=== PATIENT | male | born 1955 | race Caucasian/White ===

== ENCOUNTER 2018-04-30 04:53 | Inpatient (IN) | payer OTHER ==
--- NOTE | 2018-04-30 06:32 | PDOC.FPRHP ---
- History of Present Illness Chief Complaint: dizziness and left-sided numbness and weakness History of Present Illness: Patient is a 62 YO gentleman with a PMH significant for HTN and HLD who was transferred from an outside facility after presenting there with a CC of sudden onset dizziness w/ associated left-sided numbness and weakness & difficulty speaking that began around 17:30 yesterday evening. He stated that he was sitting on his bed in his cell and suddenly felt lightheaded and nauseous as if the room was spinning. He then began to feel numbness that started in his head and radiated all the way down into his foot all on his left side. The patient states that he tried to stand up and when he tried to grab the bed rail he realized he also had no strength in his left arm or leg. He then tried to call out to his cellmate but felt as if his whole tongue was numb and had difficulty speaking. The patient reported that his symptoms lasted for ~ 30 minutes before they resolved. The patient endorses associated nausea and vertigo but denies any chest pain, vomiting, headache or blurry/spotty vision. Of note, the patient reported having episodes of transient dizziness, numbness, and weakness almost daily since this October. He stated that before being incarcerated he saw his PCP, Dr. Pimentel, shortly after these episodes began and had imaging done which revealed some abnormality that the patient cannot recall. He said he was told to follow-up with an ENT physician but was unable to before he had to report to group home for a DUI charge. He has therefore continued to be symptomatic for the duration of his incarceration. He reported that this most recent episode was the worst one he has had so far. He was sent to [facility]'s ED from group home where he got a head and neck CTA which revealed that he had significant bilateral carotid artery stenosis. - Allergies/Adverse Reactions Allergies Allergy/AdvReac Type Severity Reaction Status Date / Time No Known Drug Allergies Allergy Verified 04/30/18 08:19 - History PMHx: HTN, HLD, skin cancer PSHx: L fem-pop bypass & skin cancer removal from nose as well as Warthin's tumor removal FHx: Mom- [place] grandmother - DMII & CVA Social: Former smoker. Smoked 1.5-2 ppd for ~40 years. Quit 1 year ago. Drinks 1 6-pack per day. No drug use. - Review of Systems General: denies: fever/chills, weight/appetite/sleep changes Eyes: denies: eye pain, vision changes ENT: reports: other (no sore throat). denies: nasal congestion Respiratory: denies: cough, congestion, shortness of breath Cardiovascular: denies: chest pain, edema Gastrointestinal: reports: nausea. denies: vomiting, diarrhea, constipation, abdominal pain Genitourinary: reports: other (no hematuria). denies: dysuria Skin: reports: itching. denies: rashes Musculoskeletal: denies: swelling, arthritis/arthralgias Neurological: reports: numbness, weakness. denies: syncope Psychological: denies: anxiety, depression - Vital signs BP: 176/70 HR: 65 RR: 18 Tmax: 97.8F Pox: 97% on RA Wt: 74.8kg - Physical Exam Constitutional: NAD, awake, alert and oriented, well developed HEENT: normocephalic and atraumatic, PERRLA, EOMI, grossly normal vision, grossly normal hearing, MMM, oropharynx clear Neck: supple, FROM, other (B/L carotid bruits) Heart: RRR, normal S1/S2, pulses present, no edema Lungs: CTAB, no respiratory distress, good air movement, no rales/rhonchi, no wheezing Abdomen: non-tender, bowel sounds present Musculoskeletal: normal structure, ROM grossly normal Neurological: no focal deficit, CN II-XII intact, normal sensation, other (No cerebellar signs. Proprioception intact.) Skin: no rash/lesions, good turgor Heme/Lymphatic: no unusual bruising or bleeding Psychiatric: normal mood and affect, good judgment and insight, intact recent and remote memory FMR H&P: Results - Labs Result Diagrams: 04/30/18 08:21 04/30/18 08:21 - Radiology Interpretation Other Status: report reviewed by me (outside ED head and neck CTA significant for B/L carotid and basialr artery stenosis R>L) FMR H&P: A/P - Problem List (1) Pre-syncope Current Visit: Yes Status: Acute (2) Carotid arterial disease Current Visit: Yes Status: Chronic Code(s): I77.9 - DISORDER OF ARTERIES AND ARTERIOLES, UNSPECIFIED Qualifiers: Carotid artery disease type: stenosis Laterality: bilateral Qualified Code(s): I65.23 - Occlusion and stenosis of bilateral carotid arteries (3) HTN (hypertension) Current Visit: Yes Status: Chronic Code(s): I10 - ESSENTIAL (PRIMARY) HYPERTENSION (4) HLD (hyperlipidemia) Current Visit: Yes Status: Chronic Code(s): E78.5 - HYPERLIPIDEMIA, UNSPECIFIED (5) Former cigarette smoker Current Visit: Yes Status: Chronic Code(s): Z87.891 - PERSONAL HISTORY OF NICOTINE DEPENDENCE (6) PVD (peripheral vascular disease) Current Visit: Yes Status: Acute Code(s): I73.9 - PERIPHERAL VASCULAR DISEASE, UNSPECIFIED - Plan 62 YOM male w/ a PMH significant for HTN and HLD as well as former heavy tobacco use who presented to an outswide ED after an episode of lightheadedness w/ left-sided weakness & numbness and dysarthria that resolved within 30 minutes who was found to have significant bilateral carotid and basilar artery stenosis on CT. Symptomatic bilateral carotid & basilar artery stenosis: - Seen on CT at outside ED. Symptoms had completely resolved prior to arriving to [facility] ED. - Will keep NPO and consider consulting CV surgery for likely surgical intervention. - Orthostats negative in the ED. - Will order an ECG to have on record in our ED but strip from outside ED was NSR. - Outside labs were WNLs but will check a CBC, BMP, TSH, Mg, Phos, and FLP. - Will resume home ASA and statin. HTN: - Aware, will order PRN meds while NPO but will resume home meds once taking PO. HLD: - Will resume home statin. h/o PVD: - Aware, s/p L fem/pop. - Will resume home ASA and statin. h/o former tobacco use: - Aware, quit ~1 year ago per patient. FMR H&P: Upper Level - Pertinent history 62 yo CM with PMHx HTN, HLD and PVD presents with cc of acute onset L sided weakness and dysarthria. He reports at 530pm yesterday he was sitting down to write a letter to his and suddenly felt weak and couldn't speak. He tried signalling to his roommate because he couldn't speak. At that point, he was taken to outside ER where CT and CTA were performed showing severe carotid stenosis. He reports these symptoms started 6 months ago back in October prior to being incarcerated. He first noticed weakness while outside gardening and thought it was related to the heat. Since then, he has had innumerable episodes of weakness, dizziness, usually worse on the L side. Yesterday was the most severe. At this time, his symptoms have completely resolved. - Pertinent findings VSS, slightly hypertensive Gen: awake, alert, oriented, appropriately interactive HEENT: atraumatic, normocephalic CV: RRR, no murmurs, significant carotid bruits noted BL, periperal pulses 1+ in BL radial and dorsalis pedis RESP: CTAB ABD: soft, nontender, nondistended EXT: no edema or cyanosis, slight clubbing of BL fingernails Neuro: CN intact, no focal strength or sensation deficits, negative [id number] , proprioception intact - Plan Date/Time: 04/30/18 0632 63 yo M with TIA and severe symptomatic carotid stenosis 1. Carotid stenosis - Hi grade BL per CTA at outside facility, will request images be uploaded, CD with patient - Will consult CV surgery this morning - NPO until surgery eval - Labs including FLP, TSH, Mg, Phos ordered - EKG ordered 2. HTN - Home medications 3. HLD - Home medications 4. H/o PVD - Fem pop on L 5. H/o tobacco and alcohol abuse - None for > 4 months PPX: Lovenox I, Trish Jacques MD, PGY-3, have evaluated this patient and agree with findings/ plan as outlined by real estate internship resident. Pertinent changes/additions are listed here. Attending Addendum - Attending Addendum Date/Time: 04/30/18 0830 I personally evaluated the patient and discussed the management with Dr. Gant/ Sawyer. I agree with the History, Examination, Assessment and Plan documented above with any addition or exceptions noted below.
[2018-04-30] MEDS ORDERED: hydrALAZINE 20 MG/ML VIAL SLOW IVP PRN (08:05)
[2018-04-30] MEDS ORDERED: Ondansetron ODT 4 MG TAB PO PRN (08:05)
[2018-04-30] MEDS ORDERED: Acetaminophen 325 MG TAB PO PRN (08:05)
[2018-04-30 08:24] VITALS: BMI 26.5
[2018-04-30 08:37] LABS: #Basophils 0.1 thou/uL (0.0-0.2); #Eosinphils 0.3 thou/uL (0.0-0.7); #Lymphocytes 2.2 thou/uL (1.20-3.40); #Monocytes 0.6 thou/uL (0.11-0.59); #Neutrophils 4.5 thou/uL (1.40-6.50); %Basophils 0.8 % (0.0-1.0); %Eosinophils 4.3 % (0.0-10.0); %Lymphocytes 28.4 % (21.0-51.0); %Monocytes 8.2 % (0.0-10.0); %Neutrophils 58.3 % (42.0-75.0); Hemoglobin 14.4 g/dL (14.0-18.0); Mean Corpuscular Hemoglobin 32.3 pg (27.0-31.0); Mean Corpuscular Volume 97.7 fL (78.0-98.0); Mean Platelet Volume 7.9 fL (7.4-10.4); Platelet Count 291 thou/uL (130-400); Red Blood Cell (RBC) Count 4.46 mill/uL (4.70-6.10); White Blood Cell (WBC) Count 7.7 thou/uL (4.8-10.8)
[2018-04-30 08:52] LABS: Anion Gap 15 mmol/L (10-20); BUN (Urea Nitrogen) 9 mg/dL (8.4-25.7); Calc. Creatinine Clearance 100 mL/min (70-130); Calcium 9.4 mg/dL (7.8-10.44); Carbon Dioxide 23 mmol/L (23-31); Chloride 106 mmol/L (98-107); Estimated GFR-MDRD Greater than 90; Glucose 103 mg/dL (80-115); Magnesium 2.1 mg/dL (1.6-2.6); Phosphorus 3.3 mg/dL (2.3-4.7); Potassium 3.5 mmol/L (3.5-5.1); Sodium 140 mmol/L (136-145)
[2018-04-30] MEDS ORDERED: Enoxaparin Sodium 40 MG/0.4 ML SYRINGE SC SCH (10:45)
--- NOTE | 2018-04-30 11:38 | ULT ---
BILATERAL CAROTID DUPLEX ULTRASOUND: HISTORY: Carotid stenosis, atherosclerotic vascular disease. TECHNIQUE: Salgado scale ultrasound with color flow and spectral Doppler imaging of the external carotid artery sys tems is performed bilaterally. FINDINGS: There is plaque formation on either side. The peak systolic velocity in the right ICA measures 497 cm/s with an end-diastolic velocity of 21 cm /s and a systolic ratio of 6.66. The peak systolic velocity in the left ICA measures 55 cm/s with an end-diastolic velocity of 20 cm/s and a systolic ratio of 0.45. Flow in both vertebral arteries remains antegrade. IMPRESSION: Severe (greater than 70%) stenosis involving the right internal carotid artery. POS: FREDDIE
--- NOTE | 2018-04-30 19:31 | CON ---
DATE OF CONSULTATION: 04/30/2018 REQUESTING PHYSICIAN: Darcy Walsh DO ADMITTING PHYSICIAN: Martha Gant MD CHIEF COMPLAINT: Left arm and leg numbness and weakness. HISTORY OF PRESENT ILLNESS: The patient is a 62-year-old man with hypertension. Since about October, he has been having problems with dizziness and he describes having had a head CT done at the outpatient [facility] in [place]. Shortly after that, he was contacted by the ENT department at the [facility] about wanting to examine him further apparently including getting a CT scan with IV co ntrast, but immediately following that, he was due to report for sentencing and incarceration for mallory e of events and is currently in a minimum security facility nearby. He describes multiple manipulati ons of his antihypertensives during this time with resultant poor control of his blood pressure, no p articular improvement in his dizziness which happens on a daily basis. Last night, he had an episode of profound left arm and leg weakness and numbness and he felt odd. In questioning him, he lumps hi s odd feelings and dizziness in with this episode last night, making it somewhat difficult to tease o ut whether he has had previous such focal symptoms. PAST MEDICAL HISTORY: Significant for peripheral vascular disease having undergone some previous low er extremity revascularization procedure on the left leg. 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 HOME MEDICATIONS: Lopressor 50 mg b.i.d., lisinopril 10 mg a day, Lipitor 10 mg a day, baby aspirin a day and Motrin 600 mg b.i.d. SOCIAL HISTORY: He smoked about 1-1/2 to 2 packs of cigarettes a day for many years, but quit about a year ago. He used to drink about a 6 pack per day, but drinks none now. ALLERGIES: He denies any medical allergies. FAMILY HISTORY: Significant for his mother dying of a heart attack at about age 60. REVIEW OF SYSTEMS: As above. He says that his left foot gets quite numb when he tries to walk more than about 50 feet. PHYSICAL EXAMINATION: GENERAL: He is in no distress. VITAL SIGNS: Heart rate 67, blood pressure 177/82, temperature is 96.3. Room air O2 sats are 95%. HEENT: He has no xanthelasma. NECK: No JVD. He has bilateral carotid bruits. LUNGS: Clear to auscultation. CARDIOVASCULAR: He has a regular rate and rhythm. ABDOMEN: Soft and nontender. EXTREMITIES: He has easily palpable radial, femoral, and right dorsalis pedis pulses. I am not able to palpate pedal pulses on the left side. He does have capillary refill on his left foot that is ab out 1 second or perhaps a little less. He has no clubbing, cyanosis or edema. NEUROLOGIC: Cranial nerves II-XII are grossly intact as his upper and lower extremity strength. LABORATORY DATA: Shows a white count of 7.7, hemoglobin 14.4, hematocrit 43.6, platelets 291,000. S odium is 140, potassium 3.5, chloride 106, CO2 is 23, BUN 9, creatinine 0.79. TSH is 3.0126. His ca rotid ultrasound showed right-sided internal carotid velocities of 60, 498 and 146 and common carotid velocities of 58, 75 and 60 with a ratio of 6.66. There is mild plaque at the carotid bulb and in t he localized area of at least architectural narrowing in the internal carotid artery associated with turbulence and just beyond that, marked spectral broadening where the internal carotid velocity is me asured at 497 cm per second. On the left side, he also has a bit of plaque at the bulb and some mild spectral broadening, left-sided internal carotid velocities; however, were measured at 55, 46 and 27 . Common carotid velocities of 98, 120 and 43 for a ratio of 0.45. IMPRESSIONS AND RECOMMENDATIONS: Symptomatic high grade right carotid stenosis. We will plan on rig ht carotid endarterectomy.
[2018-04-30] MEDS ORDERED: Atorvastatin Calcium 40 MG TAB PO SCH (21:00)
[2018-04-30] MEDS ORDERED: Enoxaparin Sodium 80 MG/0.8 ML SYRINGE SC SCH (21:00)
[2018-04-30] MEDS: Metoprolol Tartrate 50 MG TAB PO SCH (21:13)
[2018-05-01 04:21] VITALS: BP 120/58
--- NOTE | 2018-05-01 05:29 | PDOC.FM ---
- Subjective Subjective: Mr. Hernandez has no complaints, resting well in bed. Awaiting surgery today. - Objective MAR Reviewed: Yes Vital Signs & Weight: Vital Signs (12 hours) Temp Pulse Resp BP Pulse Ox 05/01/18 04:15 98.7 F 63 169 H 120/58 L 93 L 05/01/18 00:00 98.9 F 65 16 116/56 L 95 04/30/18 20:38 99.2 F 82 18 130/60 94 L 04/30/18 20:30 94 L Weight Weight 74.531 kg I&O: 04/29/18 04/30/18 05/01/18 06:59 06:59 06:59 Intake Total 480 Balance 480 Result Diagrams: 04/30/18 08:21 04/30/18 08:21 <Polina Byrnes - Last Filed: 05/01/18 07:12> - Objective Vital Signs & Weight: Vital Signs (12 hours) Temp Pulse Resp BP Pulse Ox 05/01/18 04:15 98.7 F 63 169 H 120/58 L 93 L 05/01/18 00:00 98.9 F 65 16 116/56 L 95 Weight Weight 74.531 kg I&O: 04/30/18 05/01/18 05/02/18 06:59 06:59 06:59 Intake Total 480 Balance 480 Result Diagrams: 04/30/18 08:21 04/30/18 08:21 <José Pablo - Last Filed: 05/01/18 09:54> Phys Exam - Physical Examination Constitutional: NAD HEENT: moist MMs significant R carotid bruit Respiratory: no wheezing, no rhonchi, clear to auscultation bilateral Cardiovascular: RRR, no significant murmur Gastrointestinal: soft, non-tender, positive bowel sounds Musculoskeletal: no edema, pulses present Neurological: non-focal, moves all 4 limbs Psychiatric: normal affect Skin: normal turgor, cap refill <2 seconds <Polina Byrnes - Last Filed: 05/01/18 07:12> Dx/Plan (1) Carotid arterial disease Code(s): I77.9 - DISORDER OF ARTERIES AND ARTERIOLES, UNSPECIFIED Status: Chronic Qualifiers: Carotid artery disease type: stenosis Laterality: bilateral Qualified Code(s): I65.23 - Occlusion and stenosis of bilateral carotid arteries (2) PVD (peripheral vascular disease) Code(s): I73.9 - PERIPHERAL VASCULAR DISEASE, UNSPECIFIED Status: Acute (3) HLD (hyperlipidemia) Code(s): E78.5 - HYPERLIPIDEMIA, UNSPECIFIED Status: Chronic (4) HTN (hypertension) Code(s): I10 - ESSENTIAL (PRIMARY) HYPERTENSION Status: Chronic (5) Former cigarette smoker Code(s): Z87.891 - PERSONAL HISTORY OF NICOTINE DEPENDENCE Status: Chronic - Plan Plan: 62 yo M with PMH of HTN and HLD as well as former heavy tobacco use who presented to an outside ED after an episode of lightheadedness w/ left-sided weakness & numbness and dysarthria that resolved within 30 minutes who was found to have significant bilateral carotid and basilar artery stenosis on CT. Symptomatic bilateral carotid & basilar artery stenosis: - Seen on CT at outside ED. Symptoms had completely resolved prior to arriving to [facility] ED. - carotid doppler shows severe (>70%) stenosis of R ICA. Bilateral plaque formation and antegrade flow. - R carotid endarterectomy today per CV surg. Appreciate recommendations. - FLP pending - Continue home ASA and statin. HTN: - PRN meds while NPO but will resume home meds once taking PO HLD: - Continue home statin h/o PVD: - s/p L fem/pop h/o former tobacco use: - quit ~1 year ago per patient. Dispo: surgery today <Polina Byrnes - Last Filed: 05/01/18 07:12> (1) Pre-syncope Status: Acute (2) Carotid arterial disease Code(s): I77.9 - DISORDER OF ARTERIES AND ARTERIOLES, UNSPECIFIED Status: Chronic Qualifiers: Carotid artery disease type: stenosis Laterality: bilateral Qualified Code(s): I65.23 - Occlusion and stenosis of bilateral carotid arteries (3) HTN (hypertension) Code(s): I10 - ESSENTIAL (PRIMARY) HYPERTENSION Status: Chronic (4) HLD (hyperlipidemia) Code(s): E78.5 - HYPERLIPIDEMIA, UNSPECIFIED Status: Chronic (5) Former cigarette smoker Code(s): Z87.891 - PERSONAL HISTORY OF NICOTINE DEPENDENCE Status: Chronic (6) PVD (peripheral vascular disease) Code(s): I73.9 - PERIPHERAL VASCULAR DISEASE, UNSPECIFIED Status: Acute <José Pablo R - Last Filed: 05/01/18 09:54> Attending Addendum - Attending Addendum Date/Time: 05/01/1853 I personally evaluated the patient and discussed the management with Dr. Byrnes. I agree with the History, Examination, Assessment and Plan documented above with any addition or exceptions noted below. Patient feeling well. Going for CEA this morning due to symptomatic carotid stenosis. Continue current meds and statin and await further recs from CV surg. <José Pablo R - Last Filed: 05/01/18 09:54>
[2018-05-01 07:07] LABS: Cardiac Risk 3.1 (Less than 4.5)
[2018-05-01] MEDS ORDERED: Fentanyl 250 MCG/5 ML VIAL ONE (07:07)
[2018-05-01] MEDS ORDERED: Heparin 5,000 UNITS/ML VIAL ONE (07:36)
[2018-05-01] MEDS ORDERED: Protamine Sulfate 50 MG/5 ML VIAL ONE (07:36)
[2018-05-01] MEDS ORDERED: Midazolam HCl 2 mg/2 ml Vial ONE (07:55)
[2018-05-01] MEDS ORDERED: Ondansetron ODT 4 MG TAB ONE (07:55)
[2018-05-01] MEDS ORDERED: Enoxaparin Sodium 40 MG/0.4 ML SYRINGE SC SCH (09:00)
[2018-05-01] MEDS ORDERED: Atorvastatin Calcium 10 MG TAB PO SCH (09:00)
[2018-05-01] MEDS ORDERED: Aspirin 81 mg Enteric Coated Tablet PO SCH (09:00)
[2018-05-01] MEDS ORDERED: Fentanyl 100 MCG/2 ML VIAL ONE ×2 (11:06→12:34)
[2018-05-01] MEDS ORDERED: Lidocaine 1% PF 5 ML VIAL ONE (11:58)
[2018-05-01] MEDS ORDERED: Heparin 10,000 UNITS/ 10 ML VIAL ONE (11:58)
[2018-05-01] MEDS ORDERED: Vecuronium 10 MG VIAL ONE (11:58)
[2018-05-01] MEDS ORDERED: Glycopyrrolate 0.2 MG/ML 5 ML SYRINGE ONE (11:58)
[2018-05-01] MEDS ORDERED: PROPOFOL 200 MG/20 ML VIAL ONE (11:58)
[2018-05-01] MEDS ORDERED: Ondansetron PF 4 MG/2 ML Vial ONE (11:58)
[2018-05-01] MEDS ORDERED: Promethazine HCl 25 MG/ML VIAL IM PRN (12:18)
[2018-05-01] MEDS ORDERED: Promethazine HCl 25 MG/ML VIAL SLOW IVP PRN (12:18)
[2018-05-01] MEDS ORDERED: Ondansetron HCl/PF 4 MG/2 ML Vial IVP PRN (12:18)
--- NOTE | 2018-05-01 13:55 | OP ---
DATE OF PROCEDURE: 05/01/2018 PROCEDURE PERFORMED: Right carotid endarterectomy with bovine pericardium patch angioplasty. PREOPERATIVE DIAGNOSIS: Symptomatic right carotid stenosis. POSTOPERATIVE DIAGNOSIS: Symptomatic right carotid stenosis. SURGEON: Eloy Rockwell MD. ANESTHESIA: General endotracheal anesthesia. INDICATIONS: The patient is a 62-year-old man with known vascular disease who had a transient episod e of profound left arm and leg weakness and numbness. There was some dysphoria associated with this episode and the patient has been having several months of almost daily episodes of dizziness and he h as somewhat difficult time distinguishing between the constellation of symptoms to make it clear exac tly how many episodes of focal symptoms he has experienced. Ultrasonography showed a very high grade right carotid stenosis. He is now taken to the operating room for right carotid endarterectomy. Fi ndings rather small distal internal carotid artery with brisk back bleeding. A large amount of soft plaque in the proximal ICA causing a very high grade stenosis. NARRATIVE REPORT: After informed consent was obtained, the patient was taken to the operating room a nd placed in supine position on the operating table. After the induction of general anesthesia, the patient's neck was extended and rotated towards the left. His right neck was then prepped and draped in sterile fashion. An oblique incision was made in a skin crease on the right neck using a scalpel and electrocautery. The dissection was carried through the subcutaneous tissue and platysma and the n anteromedial sternocleidomastoid muscle and internal jugular vein. The external jugular was ligate d and divided in the course of this part of exposure. Upon continuing the dissection medial to the j ugular, the facial vein and other tributaries to the jugular system crossing the operative field were ligated and divided. The common carotid artery is dissected free from the sheath and the vagus nerv e and looped with a vessel loop. The tissues were fairly densely adherent to the distal common carot id artery through the mid internal carotid. The external carotid system was looped and that was with a vessel loop and the internal carotid artery was isolated. The anterior cervix Linsey was divided a s were the sling vessels to allow for adequate exposure of the internal carotid artery beyond the lev el of the hypoglossal nerve and digastric muscle. After adequate circulation time of heparin, the in ternal carotid, common carotid, and external carotid systems were sequentially occluded. A longitudi nal arteriotomy was made in the distal common carotid artery and was extended proximally and distally with Frederick scissors. An endarterectomy plane was developed at the bulb. It was transected at the c ommon carotid level everted from the external carotid system and then broken off distally in the inte rnal carotid. The endarterectomy bed was forcefully irrigated paying particular attention at the dis eh transfeather and proximal transection points. The distal feather was tailored and then an intral uminal carotid shunt was inserted first distally in the internal carotid and then proximally in the c ommon carotid aspirating on the side port of the shunt before allowing antegrade flow through it into the internal carotid system. The endarterectomy bed was again serially irrigated, inspected and lorie rided until no more mobile debris remained because of the small size of the internal carotid artery i n the somewhat jagged arteriotomy distally at the transition point between the externally dilated dis eased, internal carotid and the small normal distal internal carotid. It was elected to repair the a rteriotomy with a patch to avoid iatrogenic narrowing of the already small vessel. Bovine pericardia l patch was brought to the field and rinsed and then it was used as an onlay patch to repair the anahy riotomy with about a 0.5 cm of suture line at the distal common carotid level left to sew. The shunt was clamped and removed and vascular control reestablished on the origin of the internal carotid and on the common carotid with vessel loops. The remaining suture line was completed, the vessels of fo rward and backbled will allow for flushing of any air or residual debris at the arteriotomy or into t he external carotid system. Antegrade flow was allowed first into the external carotid and then to t he internal carotid. The wound was inspected for hemostasis. Gross hemostasis was adequate, but jenny n after packing the wound off, there were still some oozing from the dissection bed and the distal perez ture line and was opted to partially reverse the heparin with protamine. When hemostasis was adequat e, the wound was irrigated and reinspected and then closed. The platysma was reapproximated with run tena 3-0 Vicryl and the skin was closed with a running 5-0 Vicryl, subcuticular suture and Steri-Stri ps. The wound was dressed. The patient was awakened and extubated in the operating room and taken t o the recovery area, moving all extremities in good condition.
[2018-05-01] MEDS ORDERED: hydrALAZINE 20 MG/ML VIAL SLOW IVP PRN (14:15)
[2018-05-01] MEDS ORDERED: Acetaminophen 325 MG TAB PO PRN (14:15)
[2018-05-01] MEDS ORDERED: HYDROcodone/Acetaminophen 5/325 mg Tablet PO PRN (14:15)
[2018-05-01] MEDS ORDERED: Fentanyl 100 MCG/2 ML VIAL SLOW IVP PRN ×2 (14:15)
[2018-05-01] MEDS: Lisinopril 10 MG TAB PO SCH (15:01)
[2018-05-01] MEDS: Atorvastatin Calcium 10 MG TAB PO SCH (15:01)
[2018-05-01] MEDS: Metoprolol Tartrate 50 MG TAB PO SCH ×2 (15:01→20:07)
[2018-05-01] MEDS: HYDROcodone/Acetaminophen 5/325 mg Tablet PO PRN (15:05)
[2018-05-01] MEDS: Ondansetron PF 4 MG/2 ML Vial IVP PRN (15:05)
[2018-05-01] MEDS: Sodium Chloride 0.9% 1,000 ML IV SCH ×2 (15:15→23:37)
[2018-05-02] MEDS: HYDROcodone/Acetaminophen 5/325 mg Tablet PO PRN ×2 (00:05→05:51)
[2018-05-02 04:28] LABS: #Eosinphils 0.3 thou/uL (0.0-0.7); #Lymphocytes 2.1 thou/uL (1.20-3.40); #Monocytes 0.9 thou/uL (0.11-0.59); #Neutrophils 5.2 thou/uL (1.40-6.50); %Basophils 0.6 % (0.0-1.0); %Eosinophils 3.5 % (0.0-10.0); %Lymphocytes 24.5 % (21.0-51.0); %Monocytes 10.2 % (0.0-10.0); %Neutrophils 61.2 % (42.0-75.0); Hemoglobin 13.8 g/dL (14.0-18.0); Mean Corpuscular HGB CONC 32.5 g/dL (32.0-36.0); Mean Corpuscular Hemoglobin 32.8 pg (27.0-31.0); Mean Platelet Volume 8.4 fL (7.4-10.4); Platelet Count 226 thou/uL (130-400); Red Blood Cell (RBC) Count 4.22 mill/uL (4.70-6.10); White Blood Cell (WBC) Count 8.6 thou/uL (4.8-10.8)
[2018-05-02 04:45] LABS: Anion Gap 12 mmol/L (10-20); BUN (Urea Nitrogen) 8 mg/dL (8.4-25.7); Calc. Creatinine Clearance 91 mL/min (70-130); Carbon Dioxide 23 mmol/L (23-31); Chloride 106 mmol/L (98-107); Estimated GFR-MDRD 90; Glucose 112 mg/dL (80-115); Potassium 3.6 mmol/L (3.5-5.1); Sodium 137 mmol/L (136-145)
--- NOTE | 2018-05-02 05:14 | PDOC.FM ---
- Subjective Subjective: Mr. Hernandez was sitting up in chair this morning, says he is feeling great. Denies CP, SOB. Reports this is the first day he hasn't had a headache for months. Passing gas, urinating well. Has not ambulated yet. Tolerating PO intake well. Notes mild R neck discomfort at incision site. - Objective MAR Reviewed: Yes Vital Signs & Weight: Vital Signs (12 hours) Temp Pulse Ox 05/02/18 03:00 98.2 F 05/01/18 23:00 99.3 F 05/01/18 19:28 97 05/01/18 19:00 98.9 F Weight Weight 74.531 kg Most Recent Monitor Data Heart Rate from ECG 64 NIBP 106/40 NIBP BP-Mean 62 Respiration from ECG 16 SpO2 97 I&O: 04/30/18 05/01/18 05/02/18 06:59 06:59 06:59 Intake Total 480 2165 Output Total 2250 Balance 480 -85 Result Diagrams: 05/02/18 04:07 05/02/18 04:07 <Polina Byrnes - Last Filed: 05/02/18 07:14> - Objective Vital Signs & Weight: Vital Signs (12 hours) Temp 05/02/18 07:00 99.2 F 05/02/18 03:00 98.2 F 05/01/18 23:00 99.3 F Weight Weight 74.531 kg Most Recent Monitor Data Heart Rate from ECG 63 NIBP 147/65 NIBP BP-Mean 92 Respiration from ECG 16 SpO2 96 I&O: 05/01/18 05/02/18 05/03/18 06:59 06:59 06:59 Intake Total 480 2405 600 Output Total 2250 250 Balance 480 155 350 Result Diagrams: 05/02/18 04:07 05/02/18 04:07 <José Pablo - Last Filed: 05/02/18 09:44> Phys Exam - Physical Examination Constitutional: NAD R neck surgical bandage in place, clean dry intact Respiratory: no wheezing, no rhonchi, clear to auscultation bilateral Cardiovascular: RRR, no significant murmur Gastrointestinal: soft, non-tender, no distention, positive bowel sounds Musculoskeletal: no edema Neurological: non-focal, moves all 4 limbs Psychiatric: normal affect Skin: normal turgor, cap refill <2 seconds <Polina Byrnes - Last Filed: 05/02/18 07:14> Dx/Plan (1) S/P carotid endarterectomy Code(s): Z98.890 - OTHER SPECIFIED POSTPROCEDURAL STATES Status: Acute (2) Carotid arterial disease Code(s): I77.9 - DISORDER OF ARTERIES AND ARTERIOLES, UNSPECIFIED Status: Chronic Qualifiers: Carotid artery disease type: stenosis Laterality: bilateral Qualified Code(s): I65.23 - Occlusion and stenosis of bilateral carotid arteries (3) PVD (peripheral vascular disease) Code(s): I73.9 - PERIPHERAL VASCULAR DISEASE, UNSPECIFIED Status: Acute (4) HLD (hyperlipidemia) Code(s): E78.5 - HYPERLIPIDEMIA, UNSPECIFIED Status: Chronic (5) HTN (hypertension) Code(s): I10 - ESSENTIAL (PRIMARY) HYPERTENSION Status: Chronic (6) Former cigarette smoker Code(s): Z87.891 - PERSONAL HISTORY OF NICOTINE DEPENDENCE Status: Chronic - Plan Plan: 62 yo M with PMH of HTN and HLD as well as former heavy tobacco use who presented to an outside ED after an episode of lightheadedness w/ left-sided weakness & numbness and dysarthria that resolved within 30 minutes who was found to have significant bilateral carotid and basilar artery stenosis on CT. Symptomatic bilateral carotid & basilar artery stenosis: - Seen on CT at outside ED. Symptoms had completely resolved prior to arriving to [facility] ED. - carotid doppler shows severe (>70%) stenosis of R ICA. Bilateral plaque formation and antegrade flow. - POD#1 s/p R carotid endarterectomy (05/02). Appreciate CV surg recommendations. - Continue home ASA and statin. - has prn pain meds HTN: - resume home lisinopril, metoprolol HLD: - Continue home statin h/o PVD: - s/p L fem/pop h/o former tobacco use: - quit ~1 year ago per patient. Dispo: pending CV surg recommendations <Polina Byrnes - Last Filed: 05/02/18 07:14> (1) Pre-syncope Status: Acute (2) Carotid arterial disease Code(s): I77.9 - DISORDER OF ARTERIES AND ARTERIOLES, UNSPECIFIED Status: Chronic Qualifiers: Carotid artery disease type: stenosis Laterality: bilateral Qualified Code(s): I65.23 - Occlusion and stenosis of bilateral carotid arteries (3) HTN (hypertension) Code(s): I10 - ESSENTIAL (PRIMARY) HYPERTENSION Status: Chronic (4) HLD (hyperlipidemia) Code(s): E78.5 - HYPERLIPIDEMIA, UNSPECIFIED Status: Chronic (5) Former cigarette smoker Code(s): Z87.891 - PERSONAL HISTORY OF NICOTINE DEPENDENCE Status: Chronic (6) PVD (peripheral vascular disease) Code(s): I73.9 - PERIPHERAL VASCULAR DISEASE, UNSPECIFIED Status: Acute <José Pablo R - Last Filed: 05/02/18 09:44> Attending Addendum - Attending Addendum Date/Time: 05/02/1843 I personally evaluated the patient and discussed the management with Dr. Byrnes. I agree with the History, Examination, Assessment and Plan documented above with any addition or exceptions noted below. Patient doing well POD1 from [facility] R side. Further mgmt per CVSurg recs and likely dispo soon when cleared by them. <José Pablo R - Last Filed: 05/02/18 09:44>
[2018-05-02 07:44] VITALS: TEMP 99.2
[2018-05-02] MEDS ORDERED: Acetaminophen/Codeine 30-300mg Tablet PO PRN (08:33)
[2018-05-02] MEDS: Lisinopril 10 MG TAB PO SCH (08:38)
[2018-05-02] MEDS: Atorvastatin Calcium 10 MG TAB PO SCH (08:38)
[2018-05-02] MEDS: Metoprolol Tartrate 50 MG TAB PO SCH (08:38)
[2018-05-02] MEDS: Ondansetron PF 4 MG/2 ML Vial IVP PRN (08:57)
--- NOTE | 2018-05-02 21:02 | DIS-2 ---
DATE OF ADMISSION: 04/30/2018 DATE OF DISCHARGE: 05/02/2018 RESIDENT: Polina Byrnes DO ADMITTING ATTENDING: José Pablo MD DISCHARGE ATTENDING: José Pablo MD CONSULTATIONS: Cardiovascular Surgery, Eloy Rockwell MD PROCEDURES: Carotid Dopplers on 04/30/2018 showed severe greater than 70% stenosis involving the rig ht internal carotid artery. Flow in both vertebral arteries antegrade. On 05/01/2018, Dr. Rockwell performed right carotid endarterectomy with bovine pericardium patch a ngioplasty for patient's symptomatic right carotid stenosis. PRIMARY DIAGNOSES: 1. Bilateral symptomatic carotid and basilar artery stenosis. 2. Status post right ICA carotid endarterectomy. SECONDARY DIAGNOSES: 1. Hypertension. 2. Hyperlipidemia. 3. Peripheral vascular disease, status post left fem/pop. 4. History of former tobacco use. DISCHARGE MEDICATIONS: 1. Metoprolol 50 mg p.o. b.i.d. 2. Lisinopril 10 mg p.o. daily. 3. Aspirin 81 mg p.o. daily. 4. Lipitor 10 mg p.o. daily. 5. Ibuprofen 600 mg p.o. b.i.d. 6. Acetaminophen with codeine #3, 300 mg/30 mg tab, one tab p.o. q.8 hours p.r.n. #40. HISTORY OF PRESENT ILLNESS AND HOSPITAL COURSE: A 62-year-old male was transferred from an outside facility after presenting with chief complaint of sudden onset dizziness with associated lef t-sided numbness and weakness, which then resolved after about 30 minutes. The patient reported gonzalez sient dizziness, numbness, weakness daily. He is incarcerated. A head and neck CTA at [facility] showed significant bilateral carotid artery stenosis. The patient was admitted for severe symptoma tic carotid stenosis. Cardiovascular Surgery was consulted, and plans were made for right ICA endart erectomy. The patient tolerated procedure well and was transferred to CCU immediately after procedur e. On postop day 1 in the morning, the patient was doing well with no complaints. Cardiovascular Hernandez rgery discharged the patient to his facility from the CCU. The patient was asymptomatic and stable a t the time of discharge. DISPOSITION: Stable. DISCHARGE INSTRUCTIONS: 1. Location: Incarceration facility. 2. Diet: Heart healthy. 3. Activity: As tolerated. 4. Follow up with PCP in 1 week.
--- NOTE | 2018-05-03 14:44 | DIS ---
DATE OF ADMISSION: 04/30/2018 DATE OF DISCHARGE: 05/02/2018 PRINCIPAL DIAGNOSIS: Right carotid stenosis. SECONDARY DIAGNOSIS: Peripheral vascular disease. PROCEDURES PERFORMED: Right carotid endarterectomy, 05/01/2018. HISTORY OF PRESENT ILLNESS AND HOSPITAL COURSE: The patient is a 62-year-old man who presented with profound left arm and leg numbness and weakness. This resolved spontaneously. On physical exam, he had no obvious neurologic deficits, but bilateral carotid bruits. Carotid ultra sonography rather convincingly demonstrated markedly elevated velocities and ratios in the right thayer tid system. He had no significant stenosis in the left. He underwent right carotid endarterectomy a nd had an uneventful overnight stay in the Intensive Care Unit. Today on postoperative day #1, his b lood pressure has been under good control. His tongue is midline. His voice is normal. His smile i s symmetric. He is able to move all extremities normally. His incision has no significant swelling or bruising. He is to be discharged now to resume his home medications that include an aspirin a day and a statin. He has been written a prescription for Tylenol #3 as needed for pain. I have recomme nded lifelong carotid surveillance and will plan on followup in about 2-3 weeks. In the meantime, he is to refrain from lifting more than 10 pounds straining or driving for 1 week. He may leave the wo und uncovered and shower.
== END 2018-05-02 09:55 | DRG 39 ==
LOC: ERS 04:53 → 2SE 05:52 → CCU 05-01 08:33
PROVIDERS: ADMIT Student in an Organized Health Care Education/Training Program; ATTEND Student in an Organized Health Care Education/Training Program
PROC: 03CK0ZZ Extirpation of Matter from Right Internal Carotid Artery, Open Approach (ICD-10-PCS; principal; 2018-04-30)
PROC: 03UK0KZ Supplement Right Internal Carotid Artery with Nonautologous Tissue Substitute, Open Approach (ICD-10-PCS; 2018-04-30)
DX: I65.23 Occlusion and stenosis of bilateral carotid arteries (principal); I65.1 Occlusion and stenosis of basilar artery; I10 Essential (primary) hypertension; E78.5 Hyperlipidemia, unspecified; I73.9 Peripheral vascular disease, unspecified; Z87.891 Personal history of nicotine dependence; Z79.82 Long term (current) use of aspirin; Z79.899 Other long term (current) drug therapy
CPT/HCPCS: 36415; 80048; 80061; 83735; 84100; 84443; 85025; 93005; 93880; J1642; J1644; J1650; J2001; J2250; J2405; J2704; J2720; J3010; Q0162